=== PATIENT | male | born 1945 | race Caucasian/White ===

== ENCOUNTER 2019-06-03 16:46 | Inpatient (IN) ==
[2019-06-03] MEDS ORDERED: NORCO-5 PO ONE (17:56)
--- NOTE | 2019-06-03 17:58 | PROVIDER DOCUMENTATION ---
HPI-General Adult - General Chief Complaint: Sores/Lesions Stated Complaint: KNOT ON NECK Time Seen by Provider: 06/03/19 17:44 Source: patient Allergies/Adverse Reactions: Patient Allergies Allergy/AdvReac Type Severity Reaction Status Date / Time No Known Allergies Allergy Verified 11/02/17 05:33 Home Medications: Home Medication List Medication Instructions Recorded Confirmed Last Taken Type Omeprazole 20 mg PO DAILY 10/04/13 11/02/17 11/01/17 07:00 History ROSUVAstatin [Crestor] 20 mg PO DAILY 10/04/13 11/02/17 11/01/17 07:00 History Sertraline HCl 100 mg PO DAILY 10/04/13 11/02/17 11/01/17 07:00 History Amlodipine Besylate [Norvasc] 10 mg PO DAILY 08/24/15 11/02/17 11/01/17 07:00 History Clonidine [Catapres] 0.1 mg PO BID 08/24/15 11/02/17 11/01/17 18:00 History Hydralazine [Apresoline] 100 mg PO TID 08/24/15 11/02/17 11/01/17 18:00 History Insulin Glargine [Lantus] 30 unit SUBQ QHS 08/24/15 11/02/17 11/01/17 19:00 History Docusate Sodium [Colace] 100 mg PO BID #0 capsule 08/27/15 11/02/17 11/01/17 18:00 Rx Insulin Glargine [Lantus] 30 units SQ QAM 11/02/17 11/02/17 11/01/17 07:00 History Hydralazine [Apresoline] 25 mg PO TID 30 Days #90 tab 11/06/17 Unknown Rx Isosorbide Dinitrate [Isordil] 20 mg PO TID 30 Days #90 tab 11/06/17 Unknown Rx Melatonin 5 mg PO HS PRN PRN 30 Days #30 tab 11/06/17 Unknown Rx Metoprolol [Lopressor] 50 mg PO BID 30 Days #60 tab 11/06/17 Unknown Rx - History of Present Illness -Gen Adult Nature of Presenting Problems: Patient is a 73 yom who presents with an abscess to posterior neck x 4 days. Has been on Doxycycline x 3 days with continued worsening of abscess. Sent by pcp Dr. Valdez. Denies fever or any other complaints. Pt non-toxic. Review of Systems - Adult - REVIEW OF SYSTEMS - ADULT Constitutional: reports: no symptoms reported. denies: chills, fever Eyes: reports: no symptoms reported Ears, Nose, Mouth & Throat: reports: no symptoms reported Cardiovascular: reports: no symptoms reported Respiratory: reports: no symptoms reported Gastrointestinal: reports: no symptoms reported Genitourinary: reports: no symptoms reported Musculoskeletal: reports: no symptoms reported Integumentary: reports: see HPI Neurological: reports: no symptoms reported Psychiatric: reports: no symptoms reported Endocrine: reports: no symptoms reported Hematologic/Lymphatic: reports: no symptoms reported Allergic/Immunologic: reports: no symptoms reported All Other Systems: Reviewed and Negative Past History - Adult - PAST MEDICAL HISTORY-ADULT Review of Records: reports: Old Records Reviewed, Nursing Assessment Review, Medications Reviewed, Social history reviewed & non-contributory. Major Childhood Illnesses: reports: denies history Cardiovascular: reports: CAD, HTN Respiratory: reports: sleep apnea Gastrointestinal: reports: denies history Obstetrical/Gynecological: reports: denies history Genitourinary: reports: kidney disease Musculoskeletal: reports: denies history Neurological: reports: denies history Endocrine/Immune: reports: denies history, Diabetes Diabetes Type: Type 2 Diabetes controlled by:: Insulin Dependent Other Conditions: reports: other (renal cell carcinoma bilateral lungs past hx of radiation) - PRIOR SURGERIES/PROCEDURES Surgical/Procedure History: reports: cardiac stent, other (left kidney removed) - IMMUNIZATION STATUS Childhood Immunizations: See Nurse Assessment Flu Vaccine: See Nurse Assessment - FAMILY HISTORY Family History: reviewed, not pertinent - SOCIAL HISTORY Smoking: non-smoker, quit greater than 1 year Physical Exam-General - PHYSICAL EXAM-ADULT Initial Vital Signs Reviewed: Yes - CONSTITUTIONAL General Appearance: alert, no apparent distress. negative: lethargic, slow to respond - EYES Eyes: PERRL/EOMI, pink conjunctivae - HEAD, EARS, NOSE, MOUTH & THROAT HENMT: normocephalic/atraumatic - NECK Neck: full range of motion, supple, normal inspection - RESPIRATORY Respiratory: chest non-tender, lungs clear, normal breath sounds, no pleuratic chest pain, no respiratory distress, no accessory muscle use - CARDIOVASCULAR Cardiovascular: regular rate, rhythm, no gallop, no murmur - MUSCULOSKELETAL Back Exam: normal inspection Extremity: normal range of motion, non-tender, normal gait, normal inspection - SKIN Integumentary: normal color, warm/dry, other (tender indurated abscess noted to posterior neck). negative: cyanosis, diaphoresis, jaundice, mottled, pallor - NEUROLOGIC Neurologic: grossly normal, no motor/sensory deficits - PSYCHIATRIC Psych/Mental Status: normal mood/affect, normal thought content, normal thought process, oriented x 3 Progress - PLAN OF CARE/RESULTS Progress/Plan/Lab Results: Vital Signs - 8 hr 06/03/19 17:16 Temperature 99.2 F Pulse Rate 77 Respiratory Rate 18 Blood Pressure 114/69 O2 Sat by Pulse Oximetry 94 L Orders Category Date Time Status Saline Loc NOW Care 06/03/19 17:52 Active BLOOD CULTURE [BLDCUL] Stat Lab 06/03/19 17:52 Uncollected CBC WITH DIFF [HEME] Stat Lab 06/03/19 17:52 Ordered COMPREHENSIVE METABOLIC PANEL [CHEM] Stat Lab 06/03/19 17:52 Uncollected Pharmacy Order [Vancomycin IV Per Pharmacy] Med 06/03/19 18:00 Ordered 1 each MISC DIRECTED Result Diagrams: 06/03/19 18:04 06/03/19 18:04 - CONSULTS/PCP/HOSPITALIST Notification #1 *Consult/PCP/Hospitalist*: Dr. Valdez Time Discussed: 18:30 Reason/Comments: admission- cellulitis Consult Disposition: Admit Departure - Departure Date of Disposition Decision: 06/03/19 Time of Disposition Decision: 19:00 DIAGNOSIS: ESRD (end stage renal disease) on dialysis Cellulitis Qualifiers: Site of cellulitis: neck Qualified Code(s): L03.221 - Cellulitis of neck Diabetes Qualifiers: Diabetes mellitus type: type 2 Diabetes mellitus prison insulin use: with computer terminal operator use Diabetes mellitus complication status: with hyperglycemia Qualified Code(s): E11.65 - Type 2 diabetes mellitus with hyperglycemia; Z79.4 - superintendent container terminal (current) use of insulin Disposition: ADMITTED INPATIENT 09 Certified Medical Emergency: Emergent Condition: Stable Referrals and Follow-Ups: Nirmal Valdez MD [Primary Care Provider] - - Critical Care Note This patient required my direct & personal management of CC.: No Attestation - Physician/ CONCHIS Attestation Patient care was provided by Advanced Practice Provider:: Yes Advanced Practice Provider:: Liv Jordan Advanced Practice Provider documentation review:: The Mid-level provider documentation, treatment plan and medical decision making was reviewed by the physician who agrees with all treatment and medical decision making by the MLP. The physician spent face to face time with patient:: No Advanced Practice Provider documentation review:: Supervising physician onsite and consulted in the evaluation and care of this patient. The physician did not have a face to face encounter with the patient.
[2019-06-03] MEDS ORDERED: VANCOMYCIN IV PER PHARMACY MISC SCH (18:00)
[2019-06-03 18:22] LABS: BASO# 0.02 X1000 (0.0-0.2); BASO% 0.1 % (0.0-0.8); EOS# 0.09 X1000 (0.0-0.7); EOS% 0.4 % (0.0-10.0); HEMATOCRIT 38.1 % (42.0-52.0); HEMOGLOBIN 11.9 g/dL (14.0-18.0); IMM GRAN# 0.11 X1000 (0.0-0.04); IMM GRAN% 0.5 % (0.0-0.5); LYMPH% 6.7 % (20.5-51.1); MCH 31.4 PG (27-31); MCHC 31.2 g/dL (33-37); MCV 100.5 FL (81-99); MONO# 1.42 X1000 (0.11-0.59); MONO% 6.8 % (1.7-9.3); NEUT# 17.78 X1000 (1.4-6.5); NEUT% 85.5 % (42.2-75.2); PLT 286 X1000 (130-400); RBC 3.79 XMIL (4.7-6.1); RDW 14.5 % (11.5-14.5); WBC 20.82 X1000 (4.8-10.8)
[2019-06-03] MEDS ORDERED: VANCOMYCIN 1 GM/NS 1 GM/250 ML IVPB IV ONE (18:30)
[2019-06-03 18:36] LABS: BANDS 1 % (0-1); LYMPHS 5 % (21-51); MONO 5 % (1-9); SEGS 89 % (42-75)
[2019-06-03 18:37] LABS: LARGE PLATELETS 1+
[2019-06-03 18:57] LABS: ALBUMIN 4.2 g/dL (3.5-5.0); CALCIUM 9.9 mg/dL (8.8-10.2); CREATININE 2.7 mg/dL (0.7-1.2); POTASSIUM 3.6 mmol/L (3.5-5.1); TOTAL BILIRUBIN 0.3 mg/dL (0.20-1.00); TOTAL PROTEIN 8.9 g/dL (6.3-8.3)
[2019-06-03] MEDS ORDERED: HUMULIN R (PARKWAY) SUBQ ONE (19:04)
[2019-06-03] MEDS ORDERED: EPINEPHRINE 4 MG in NS 250 ML IV SCH (20:15)
[2019-06-03] MEDS ORDERED: LEVOPHED 8 MG in D5 1/2 NS 250 ML IV SCH (20:15)
[2019-06-03] MEDS ORDERED: PITRESSIN 40 UNIT in NS 100 ML IV SCH (20:15)
[2019-06-03 21:17] LABS: INR 1.03
[2019-06-03 21:18] LABS: PTT 34.1 Seconds (22.3-41.8)
[2019-06-03] MEDS: NORCO-10 PO PRN (23:11)
[2019-06-03] MEDS: ZOSYN 2.25 GM in NS 50 ML IV SCH (23:11)
[2019-06-04] MEDS ORDERED: LINZESS PO PRN (00:20)
[2019-06-04] MEDS: NORCO-10 PO PRN ×5 (05:39→22:40)
[2019-06-04] MEDS: ZOSYN 2.25 GM in NS 50 ML IV SCH ×3 (05:39→22:34)
[2019-06-04] MEDS: PRILOSEC PO SCH (06:08)
[2019-06-04] MEDS: LASIX PO SCH ×2 (08:39→20:27)
[2019-06-04] MEDS: APRESOLINE PO SCH ×4 (08:39→21:04)
[2019-06-04] MEDS: COLACE PO SCH ×2 (08:39→20:28)
[2019-06-04] MEDS: ZOLOFT PO SCH (08:39)
[2019-06-04] MEDS: NORVASC PO SCH (08:39)
[2019-06-04] MEDS: LANTUS INSULIN SUBQ SCH ×2 (08:39→20:28)
[2019-06-04] MEDS: CRESTOR PO SCH (08:40)
[2019-06-04] MEDS: ASPIRIN EC PO SCH (08:40)
[2019-06-04] MEDS: LOPRESSOR PO SCH ×2 (08:40→20:28)
[2019-06-04] MEDS: ISORDIL PO SCH ×3 (08:40→20:27)
[2019-06-04 10:09] LABS: HEMATOCRIT 34.1 % (42.0-52.0); HEMOGLOBIN 10.6 g/dL (14.0-18.0); MCH 31.6 PG (27-31); MCHC 31.1 g/dL (33-37); MCV 101.8 FL (81-99); RBC 3.35 XMIL (4.7-6.1); RDW 14.4 % (11.5-14.5); WBC 17.41 X1000 (4.8-10.8)
[2019-06-04 10:24] LABS: ALBUMIN 3.7 g/dL (3.5-5.0); CALCIUM 9.4 mg/dL (8.8-10.2); CREATININE 4.1 mg/dL (0.7-1.2); MAGNESIUM 1.9 mg/dL (1.5-2.7); POTASSIUM 3.8 mmol/L (3.5-5.1); TOTAL BILIRUBIN 0.3 mg/dL (0.20-1.00); TOTAL PROTEIN 7.8 g/dL (6.3-8.3)
[2019-06-04] MEDS ORDERED: VANCOMYCIN 1 GM/NS 1 GM/250 ML IVPB IV SCH (10:30)
--- NOTE | 2019-06-04 12:41 | HISTORY AND PHYSICAL ---
CHIEF COMPLAINT: Back of the neck with redness and infection. HISTORY OF PRESENT ILLNESS: Mr. Farhan Reyes is a 73-year-old male with a medical history of CAD, left nephrectomy from cancer, sleep apnea with CPAP, hypertension, diabetes, obesity, congestive heart failure, who states that about a week ago a pimple developed on the back of his neck, and then its surrounding area became red, warm and tender. He went to Dr. Platt for doxycycline a few days ago, but the symptoms never improved. He contacted Dr. Valdez who informed him to come in for IV antibiotic therapy. He also has end-stage renal disease, receives dialysis on Thursday, Thursday and Thursday, and he did get dialysis yesterday. White count is significantly elevated, but it has improved since IV antibiotics were initiated. Lactate also went back down. Antibiotics that were started is Zosyn and vancomycin after each dialysis. He did receive a one-time vancomycin dose yesterday which was after dialysis. PAST MEDICAL HISTORY: 1. CAD, one cardiac stent. 2. Congestive heart failure. 3. End-stage renal disease on hemodialysis Thursday, Thursday and Thursday. 4. History of renal cell carcinoma with left nephrectomy and 3 radiation treatments. 5. Sleep apnea with CPAP. 6. History of gout, but the last time he had it was around 3 or 4 years ago. He is not no longer on any medications for that. 7. Hypertension. 8. Diabetes mellitus type 2. 9. Morbid obesity with a BMI of 36.1. 10. GERD. PAST SURGICAL HISTORY: 1. Cardiac stent x1. 2. Left AV shunt. 3. Bilateral carpal tunnel surgery. 4. Left nephrectomy. SOCIAL HISTORY: He quit smoking in 1983, he started at the age of 17 and got up to about 3 packs per day. Denies any alcohol or illicit drug use. He is a former psychiatric nurse of about 15 years. His is at the bedside. FAMILY HISTORY: Mother of old age, did have some bowel problems. Father from old age as well, they both were in their 90s. ALLERGIES: No known drug allergies. HOME MEDICATIONS: 1. Lantus 30 units subcutaneous nightly. 2. Hydralazine 100 mg p.o. t.i.d. 3. Aspirin 81 mg p.o. daily. 4. Crestor 20 mg p.o. daily. 5. Lasix 40 mg p.o. twice daily, but not on Thursday, Thursday and Fridays, those of the days of dialysis. 6. Lantus. He takes 30 units in the morning and at night, so twice a day. 7. Linzess 145 mcg p.o. p.r.n. 8. Norvasc 10 mg p.o. daily, but not on Thursday, Thursday and Thursday. 9. Omeprazole 20 mg p.o. daily. 10. Sertraline 100 mg p.o. daily. 11. Docusate sodium 200 mg p.o. twice daily. 12. Hydralazine, is really unclear. He may be on 25 mg or he may be on 100 mg 3 times a day but not Thursday, Thursday or Thursday. 13. Isosorbide dinitrate 20 mg p.o. t.i.d. 14. Metoprolol 50 mg p.o. twice daily. REVIEW OF SYSTEMS: A fourteen point review of systems is complete and all were negative except for those mentioned above in the HPI. PHYSICAL EXAMINATION: VITAL SIGNS: Temperature 98.2 degrees, heart rate 88, respiratory rate 20, blood pressure 99/60, O2 saturation is 97% on room air. GENERAL: Mr. Farhan Reyes is a 73-year-old male. He is in no acute distress. He is able to answer questions appropriately. HEENT: Atraumatic, normocephalic. Pupils are equal, round and reactive to light. Extraocular movements intact. Mucous membranes are dry. NECK: Trachea midline. CARDIOVASCULAR: S1, S2. Regular rate and rhythm. No rubs, gallops or murmurs. No lower extremity edema. +2 dorsalis and radial pulses. Negative JVD or carotid bruits. PULMONARY: Clear to auscultation bilaterally breath sounds. No accessory muscle use or work of breathing noted. GI: Soft, nontender, nondistended. Positive bowel sounds x4. EXTREMITIES: Moves all extremities equally. Full range of motion. NEUROLOGIC: A and O x3. Follows commands. Sensory is intact. SKIN: Warm, dry, intact. : In the left upper extremity AV is positive bruit and thrill. LABORATORY DATA: White blood cells 17,000, hemoglobin 10, hematocrit 34, platelet count 273,000. Sodium 134, potassium 3.8, BUN 36, creatinine 4.1, glucose 263, calcium 9.4, magnesium 1.9, bilirubin 0.30, AST 8, ALT 10. CK 84. Albumin 3.7, lactate was originally 4.1, then down to 2.5 and then 1.6. IMAGING: None. ASSESSMENT AND PLAN: 1. Cellulitis behind the neck, elevated lactate and elevated white blood cell count. Lactate is back to normal. White count is improved. He has been started on vancomycin and Zosyn. He did not receive any fluids in the ER. 2. End-stage renal disease with hemodialysis on Thursday, Thursday and Thursday. He did receive dialysis yesterday. 3. Hypertension. He takes antihypertensives, but on all the days that he does not have dialysis. 4. Congestive heart failure. No signs or symptoms of fluid overload. 5. Sleep apnea. He wears CPAP at night. 6. Diabetes mellitus type 2. We will do pattern blood glucoses and sliding scale insulin. He is hyperglycemic at this time. 7. Deep venous thrombosis prophylaxis. SCDs. Dictated by JEANNINE Fuentes for Nirmal Valdez MD cc: JEANNINE Fuentes MD
[2019-06-04] MEDS ORDERED: HUMULIN R SUBQ SCH (16:00)
--- NOTE | 2019-06-04 19:17 | HISTORY AND PHYSICAL ---
ADDENDUM: Patient seen and examined by myself. Full note dictated by and discussed with nurse practitioner. Patient presented to the hospital with pain and swelling in the back of his neck. Appears to have cellulitis and most likely has sepsis from this. Does have an elevated white count. He has had some low blood pressures, but he is tolerating those very well. He frequently has low blood pressures after his dialysis treatments. We are not going to fluid bolus him due to due to the fact that he is on dialysis and he does not appear to be symptomatic. We are going to place on antibiotics, give him 1 dose of vancomycin as well as Zosyn every 8 hours. Continue to follow his electrolytes. Should they change, we will discuss with Dr. Gurrola about possibly dialyzing over the weekend. cc: Nirmal Valdez MD
[2019-06-04] MEDS ORDERED: APRESOLINE PO SCH (21:00)
[2019-06-04] MEDS: HUMULIN R (PARKWAY) SUBQ SCH (21:05)
[2019-06-05] MEDS: NORCO-10 PO PRN ×5 (02:40→20:43)
[2019-06-05] MEDS: ZOSYN 2.25 GM in NS 50 ML IV SCH ×3 (05:32→22:48)
[2019-06-05] MEDS: PRILOSEC PO SCH (06:18)
[2019-06-05] MEDS: HUMULIN R (PARKWAY) SUBQ SCH ×4 (06:47→22:47)
[2019-06-05] MEDS: COLACE PO SCH ×2 (09:22→20:42)
[2019-06-05] MEDS: LOPRESSOR PO SCH ×2 (09:23→20:43)
[2019-06-05] MEDS: ASPIRIN EC PO SCH (09:23)
[2019-06-05] MEDS: CRESTOR PO SCH (09:23)
[2019-06-05] MEDS: APRESOLINE PO SCH ×6 (09:23→20:47)
[2019-06-05] MEDS: LASIX PO SCH ×2 (09:23→20:43)
[2019-06-05] MEDS: ZOLOFT PO SCH (09:23)
[2019-06-05] MEDS: LANTUS INSULIN SUBQ SCH ×2 (09:24→21:50)
[2019-06-05] MEDS: NORVASC PO SCH (11:52)
[2019-06-05] MEDS: ISORDIL PO SCH ×3 (11:52→20:42)
--- NOTE | 2019-06-05 13:01 | PROGRESS NOTE ---
DATE: 06/05/2019 SUBJECTIVE: Patient has no complaints. Notes that his abscess on the back of his neck is improving. PHYSICAL EXAMINATION: Vital Signs: Temperature 98 degrees, pulse 85, respiratory rate 18, blood pressure 105/55. General: Patient is pleasant, in no distress. HEENT: Normocephalic. Neck: Supple. Cardiovascular: Regular rate. Chest: Clear. Abdomen: Soft. Extremities: Moves all extremities. Skin: He does have an indurated, nonfluctuant area on the base of his neck that is improving. It is actually smaller in size today. ASSESSMENT: 1. Cellulitis. 2. Diabetes. 3. Chronic renal failure on dialysis. 4. Hypertension. PLAN: We are going to continue the patient in the hospital. Blood pressures were a little low yesterday, which is not uncommon for him after dialysis. We are going to hold his blood pressure medicine today and we will follow. His abscess actually is improving. Hopefully, he can discharge home tomorrow with home antibiotics and resume his dialysis as usual. cc: Nirmal Valdez MD
[2019-06-06 05:59] LABS: HEMATOCRIT 30.5 % (42.0-52.0); HEMOGLOBIN 9.4 g/dL (14.0-18.0); MCH 30.9 PG (27-31); MCHC 30.8 g/dL (33-37); MCV 100.3 FL (81-99); MPV 11.1 FL (7.4-10.4); RBC 3.04 XMIL (4.7-6.1); RDW 13.9 % (11.5-14.5); WBC 15.1 X1000 (4.8-10.8)
[2019-06-06] MEDS: ZOSYN 2.25 GM in NS 50 ML IV SCH (06:05)
[2019-06-06] MEDS: HUMULIN R (PARKWAY) SUBQ SCH (06:06)
[2019-06-06] MEDS: PRILOSEC PO SCH (06:10)
[2019-06-06 06:17] LABS: ALBUMIN 3.3 g/dL (3.5-5.0); CALCIUM 9.1 mg/dL (8.8-10.2); MAGNESIUM 2.2 mg/dL (1.5-2.7); TOTAL BILIRUBIN 0.3 mg/dL (0.20-1.00); TOTAL PROTEIN 7.4 g/dL (6.3-8.3)
[2019-06-06] MEDS: NORCO-10 PO PRN (06:21)
[2019-06-06 07:45] VITALS: BP 125/74
[2019-06-06] MEDS: COLACE PO SCH (08:35)
[2019-06-06] MEDS: LANTUS INSULIN SUBQ SCH (08:35)
[2019-06-06] MEDS: CRESTOR PO SCH (08:36)
[2019-06-06] MEDS: ISORDIL PO SCH (08:36)
[2019-06-06] MEDS: LOPRESSOR PO SCH (08:36)
[2019-06-06] MEDS: ZOLOFT PO SCH (08:36)
[2019-06-06] MEDS: ASPIRIN EC PO SCH (08:36)
--- NOTE | 2019-06-06 15:07 | DISCHARGE SUMMARY ---
ADMISSION DATE: 06/03/2019 DISCHARGE DATE: 06/06/2019 PRIMARY CARE PROVIDER: Dr. Valdez. CONSULTATIONS: None. PERTINENT PROCEDURES: None. DISCHARGE DIAGNOSES: 1. Cellulitis behind the neck. He has been on IV vancomycin and Zosyn and will be discharged home on IV vancomycin after hemodialysis and Keflex t.i.d. 2. End-stage renal disease on hemodialysis Thursday, Thursday, Thursday. He will be discharged to receive his normal hemodialysis. 3. Hypertension. Continue home regimen. 4. Congestive heart failure. No signs of fluid volume overload. 5. Sleep apnea. Continue CPAP. 6. Diabetes mellitus type 2. Continue home medications. HOSPITAL COURSE: Briefly, Mr. Reyes is a 73-year-old gentleman with past medical history coronary artery disease, left nephrectomy from cancer, sleep apnea on CPAP, hypertension, diabetes, obesity, congestive heart failure, reported he developed a pimple one week ago on the back of his neck and it became warm and tender. He went to Dr. Platt for doxycycline for a few days. The symptoms did not improve. He contacted Dr. Valdez who informed him to come in for IV antibiotics. He is also known end-stage renal disease on hemodialysis Thursday, Thursday, Thursday. His white count was significantly elevated improved with IV antibiotics. Lactates are back to normal. He was started on Zosyn and vancomycin after dialysis initially and was continued in the hospital. His abscess on the back of the neck has improved. White count has improved every day. His hospital course was uneventful and he will be discharged back home to continue on hemodialysis and IV antibiotics after dialysis and will continue on Keflex t.i.d. PHYSICAL EXAMINATION: Vital Signs: At time of discharge, temperature is 98.2 degrees, heart rate 100, respirations 18, blood pressure 125/74, O2 is 97% on room air. DISCHARGE DIET: Diabetic. DISCHARGE MEDICATIONS: 1. Lantus 30 units subcutaneous at bedtime. 2. Apresoline 100 mg p.o. t.i.d. 3. Aspirin 81 mg p.o. daily. 4. Crestor 20 mg p.o. daily. 5. Lasix 40 mg p.o. b.i.d., but not on Thursday, Thursday, or Thursday. 6. Linzess 145 mcg p.o. daily. 7. Lantus at 30 units subcutaneous q.a.m. 8. Norvasc 10 mg p.o. daily, but not on Thursday, Thursday, or Thursday. 9. Prilosec 20 mg p.o. daily. 10. Zoloft 100 mg p.o. daily. 11. Stool softener 200 mg p.o. b.i.d. 12. Apresoline 25 mg p.o. t.i.d. 13. Isordil 20 mg p.o. t.i.d. 14. Keflex 500 mg p.o. t.i.d. 15. Lopressor 50 mg p.o. b.i.d. 16. Vancomycin after hemodialysis. FOLLOWUP: Mr. Reyes is being discharged back home. He will continue on his normal scheduled hemodialysis with vancomycin. He is to take all medications as prescribed. He can return to the ED or call 911 for any worsening of symptoms. He will also need to be set up with a general surgeon to continue to monitor his abscess. He can return to the ED or call 911 for any worsening of symptoms. Dictated by JEANNINE Duckworth for Nirmal Valdez MD cc: MD Sarkis Hurst MD
--- NOTE | 2019-06-07 04:30 | PROGRESS NOTE ---
DATE: 06/06/2019 SUBJECTIVE: The patient's abscess on the back of his neck has improved. It is still hard, but it is not fluctuant. There does not appear to be any ability to drain it at the moment. We are going to continue vancomycin after dialysis. Continue Keflex orally. If worsens, he will follow up with General Surgery for possible drainage. cc: Nirmal Valdez MD
== END 2019-06-06 11:01 | disposition home or self-care (01) | DRG 602 ==
LOC: P.ED 16:46 → P.MEDSURG 21:08
PROVIDERS: ATTEND Family Medicine